=== PATIENT | female | born 1960 | race African-American/Black ===

== ENCOUNTER 2016-03-17 16:03 | Outpatient (CLI) | payer OTHER ==
--- NOTE | 2016-03-17 21:25 | RAD ---
ACUTE ABDOMEN SERIES 03/17/16 Comparison is made with a 03/19/12 study. Supine and erect film show no free air beneath the diaphragm. The gas pattern is normal and shows no distended loops to suggest obstruction. There is an abundance of fecal material present, however. S evere rather large calcifications are seen in the left upper quadrant that appear to be in bowel. Le ft pelvic calcifications are no different than before and are phleboliths. An additional calcific de nsity in the mid pelvic region is probably in bowel as well. There is no free air. The chest film in the series is also compared with the 2013 study. There has been no adverse change. The heart is nor mal in size and the lungs are clear. IMPRESSION: Moderate constipation. Severe left upper quadrant calcifications that appear to be within bowel and are probably not significant. POS: HOME
== END 2016-03-17 16:04 | disposition home or self-care (01) ==
LOC: BURRAD 16:03
PROVIDERS: ATTEND Family Medicine
DX: R10.12 Left upper quadrant pain (principal); Z87.09 Personal history of other diseases of the respiratory system
CPT/HCPCS: 36415; 74022; 81001; 83690; 83880

== ENCOUNTER 2016-03-17 16:33 | Outpatient (CLI) | payer OTHER ==
[2016-03-17 20:27] LABS: Bilirubin Negative (Negative); Blood, Urine Negative (Negative); Glucose, Urine (Dipstick) 500 mg/dL (Negative); Ketone, Urine Negative (Negative); Nitrite Negative (Negative); Protein, Urine (Dipstick) Negative (Neg-Trace); Urobilinogen 0.2 mg/dL (0.2-1.0)
[2016-03-17 21:00] LABS: Bacteria/HPF None Seen HPF (None Seen); RBC/HPF 0-3 HPF (0-3); WBC/HPF None Seen HPF (0-3)
== END 2016-03-17 16:34 | disposition home or self-care (01) ==
LOC: HPCALD 16:33
PROVIDERS: ATTEND Family Medicine
DX: M54.14 Radiculopathy, thoracic region (principal); Z87.09 Personal history of other diseases of the respiratory system; R10.12 Left upper quadrant pain
CPT/HCPCS: 36415; 81001; 83690; 83880

== ENCOUNTER 2016-03-28 16:07 | Outpatient (CLI) | payer OTHER | END 2016-03-28 16:08 | disposition home or self-care (01) | LOC: HPCALD 16:07 | PROVIDERS: ATTEND Family Medicine | DX: N76.0 Acute vaginitis (principal) | CPT/HCPCS: 87480; 87491; 87510; 87591; 87660 ==

== ENCOUNTER 2016-05-30 09:59 | Outpatient (CLI) | payer OTHER ==
[2016-05-30 11:29] LABS: ALT (SGPT) 21 U/L (0-55); AST (SGOT) 16 U/L (5-34); Albumin 4.3 g/dL (3.5-5.0); Alkaline Phosphatase 121 U/L (40-150); Bilirubin, Direct 0.2 mg/dL (0.1-0.3); Bilirubin, Total 0.4 mg/dL (0.2-1.2); Cardiac Risk 4.5 (Less than 4.5); Cholesterol 125 mg/dL (< 200 Desired); HDL Cholesterol 28 mg/dL (>60 Neg Risk); LDL Cholesterol, Calculated 79 mg/dL; Protein, Total 7.5 g/dL (6.0-8.3); Triglycerides 90 mg/dL (Less than 150)
[2016-05-30 11:41] LABS: Hemoglobin A1c 8.3 % (4.0-6.0)
== END 2016-05-30 10:00 | disposition home or self-care (01) ==
LOC: HPCALD 09:59
PROVIDERS: ATTEND Family Medicine
DX: E11.9 Type 2 diabetes mellitus without complications (principal)
CPT/HCPCS: 36415; 80061; 80076; 83036